=== PATIENT | male | born 1940 ===

== ENCOUNTER 2024-01-26 11:15 | Inpatient (IN) | payer OTHER ==
[~2024-01-26] VITALS: Ht 180.3 cm; Wt 72.6 kg
[2024-01-26 13:19] VITALS: BP 160/80
[2024-01-26] MEDS ORDERED: COZAAR25 MG PO (13:22)
[2024-01-26] MEDS ORDERED: ISOSORBIDE DINI30 MG PO (13:22)
[2024-01-26] MEDS ORDERED: ROSUVASTATIN CA10 MG PO (13:23)
[2024-01-26] MEDS ORDERED: PLAVIX75 MG PO (13:23)
[2024-01-26] MEDS ORDERED: CLARINEX-D 121 EACH PO (13:23)
[2024-01-26] MEDS ORDERED: D3 DOTS50 MCG PO (13:24)
[2024-01-26] MEDS ORDERED: MULTIPLE VITAM1 EAC2 PO (13:24)
[2024-01-29] MEDS ORDERED: PERCOCET 5-3251 EACH PO (10:58)
[2024-01-29] MEDS ORDERED: ZOFRAN8 MG PO (10:59)
[2024-01-29] MEDS ORDERED: MEDROLPACK PO (10:59)
[2024-01-29] MEDS ORDERED: COLACE100 MG PO (10:59)
[2024-01-29] MEDS ORDERED: 0.9 % SODIUM CHLORIDE 1,000 ML IV SCH (11:00)
[2024-01-29] MEDS ORDERED: ENALAPRILAT DIHYDRATE 1.25 MG/ML VIAL IV PRN (11:00)
[2024-01-29] MEDS ORDERED: PROMETHAZINE HCL 50 MG/ML AMPUL IM PRN (11:00)
[2024-01-29] MEDS ORDERED: METHYLPREDNISOLONE SOD SUCC 125 MG VIAL IV ONE ×2 (12:15)
[2024-01-29] MEDS ORDERED: CEFAZOLIN SODIUM 2,000 MG in 0.9 % SODIUM CHLORIDE 100 ML IV ONE (12:15)
[2024-01-29] MEDS ORDERED: VANCOMYCIN HCL 1,000 MG in 0.9 % SODIUM CHLORIDE 250 ML IV ONE (12:15)
[2024-01-29] MEDS ORDERED: HEMOSTATIC MATRIX WITH THROMBIN KIT TOP ONE (12:15)
[2024-01-29] MEDS ORDERED: METHYLPREDNISOLONE ACETATE 80 MG/ML VIAL IU ONE (12:15)
[2024-01-29] MEDS ORDERED: VANCOMYCIN HCL 1,000 MG VIAL IR ONE (12:15)
[2024-01-29] MEDS ORDERED: DOCUSATE SODIUM 100MG CAP PO SCH (13:00)
[2024-01-29] MEDS ORDERED: MORPHINE SULFATE 4 MG/ML CARTRIDGE IV SCH (13:00)
[2024-01-29] MEDS ORDERED: MORPHINE SULFATE 4 MG/ML VIAL IV ONE ×2 (14:15→14:45)
[2024-01-29 16:15] VITALS: BP 110/78; O2SAT 96
[2024-01-29] MEDS ORDERED: CEFAZOLIN SODIUM 1,000 MG in 0.9 % SODIUM CHLORIDE 50 ML IV SCH (17:00)
[2024-01-29] MEDS ORDERED: FAMOtidine 20 MG TABLET PO SCH (17:00)
[2024-01-29] MEDS ORDERED: METHYLPREDNISOLONE SOD SUCC 125 MG VIAL IV SCH (17:00)
[2024-01-29] MEDS ORDERED: VANCOMYCIN HCL 1,000 MG VIAL IV SCH (21:00)
[2024-01-30] MEDS ORDERED: SODIUM CHLORIDE 0.45 % 1,000 ML IV SCH
[2024-01-30 00:25] VITALS: BP 119/82; O2SAT 100
[2024-01-30 04:00] VITALS: BP 99/62; O2SAT 99
[2024-01-30 05:52] LABS: CALCIUM 8.5 mg/dL (8.5-10.1); CREATININE SERUM 1.01 mg/dL (0.70-1.30); GFR 70.55; POTASSIUM 5.17 mEq/L (3.5-5.1)
[2024-01-30] MEDS ORDERED: OxyCODONE HCL/APAP UD (PERCOCET) PO PRN (06:01)
[2024-01-30 06:17] LABS: HEMOGLOBIN 11.4 g/dL (13-16.00); MEAN CELL VOLUME 88.2 fL (80.0-100.00); MEAN CORPUSCULAR HEMOGLOBIN 29.6 pg (27.00-32.0); MEAN CORPUSCULAR HGB CONC 33.5 g/dl (32.0-36.0); PLATELET COUNT 191 K/uL (150-450); RED BLOOD COUNT 3.85 M/uL (4.00-6.00); RED CELL DISTRIBUTION WIDTH 13.5 % (11.5-14.5)
[2024-01-30 08:53] VITALS: BP 113/76; O2SAT 98
[2024-01-30] MEDS ORDERED: ISOSORBIDE DINITRATE 20 MG TABLET PO SCH (09:00)
[2024-01-30] MEDS ORDERED: TAMSULOSIN HCL 0.4 MG CAP PO SCH (09:00)
[2024-01-30] MEDS ORDERED: LOSARTAN POTASSIUM 25 MG TABLET PO SCH (09:00)
[2024-01-30] MEDS ORDERED: ISOSORBIDE MONONITRATE 30 MG TABLET PO SCH (09:00)
== END 2024-01-30 12:02 | disposition home or self-care (01) | DRG 471 ==
LOC: O/R 01-29 06:44 → SURH 01-29 11:15 → PED 01-29 15:21
PROVIDERS: ADMIT Orthopaedic Surgery Orthopaedic Surgery of the Spine; ATTEND Orthopaedic Surgery Orthopaedic Surgery of the Spine
PROC: 0RT30ZZ Resection of Cervical Vertebral Disc, Open Approach (ICD-10-PCS; 2024-01-29)
PROC: 07DS0ZZ Extraction of Vertebral Bone Marrow, Open Approach (ICD-10-PCS; 2024-01-29)
PROC: 4A1104G Monitoring of Peripheral Nervous Electrical Activity, Intraoperative, Open Approach (ICD-10-PCS; 2024-01-29)
PROC: 0RG20A0 Fusion of 2 or more Cervical Vertebral Joints with Interbody Fusion Device, Anterior Approach, Anterior Column, Open Approach (ICD-10-PCS; principal; 2024-01-29 13:30)
DX: M50.01 Cervical disc disorder with myelopathy, high cervical region (principal); S14.123A Central cord syndrome at C3 level of cervical spinal cord, initial encounter; S14.125A Central cord syndrome at C5 level of cervical spinal cord, initial encounter; M50.021 Cervical disc disorder at C4-C5 level with myelopathy; M48.02 Spinal stenosis, cervical region; I10 Essential (primary) hypertension; E78.00 Pure hypercholesterolemia, unspecified

== ENCOUNTER 2024-06-17 08:23 | Inpatient (IN) | payer OTHER ==
[~2024-06-17] VITALS: Ht 30.5 cm; Wt 72.6 kg
[~2024-06-17 08:23] MED LIST: CLARINEX-D 121 EACH PO; COLACE100 MG PO; COZAAR25 MG PO; D3 DOTS50 MCG PO; ISOSORBIDE DINI30 MG PO; MEDROLPACK PO; MULTIPLE VITAM1 EAC2 PO; PERCOCET 5-3251 EACH PO; PLAVIX75 MG PO; ROSUVASTATIN CA10 MG PO; ZOFRAN8 MG PO
[2024-06-21] MEDS ORDERED: CEFAZOLIN SODIUM 1,000 MG VIAL ONE (06:33)
[2024-06-21] MEDS ORDERED: VANCOMYCIN HCL 1,000 MG VIAL ONE (06:33)
[2024-06-21] MEDS ORDERED: METHYLPREDNISOLONE SOD SUCC 125 MG VIAL ONE (06:34)
[2024-06-21] MEDS ORDERED: METHYLPREDNISOLONE ACETATE 80 MG/ML VIAL ONE (06:37)
[2024-06-21] MEDS ORDERED: AMOX-CLAV 875-1 EACH PO (07:28)
[2024-06-21] MEDS ORDERED: PERCOCET 5-3251 EACH PO (07:28)
[2024-06-21] MEDS ORDERED: MEDROLPACK PO (07:28)
[2024-06-21] MEDS ORDERED: GABAPENTIN100 M2 PO (07:29)
[2024-06-21] MEDS ORDERED: NEURONTIN300 MG PO (07:30)
[2024-06-21] MEDS ORDERED: ENALAPRILAT DIHYDRATE 1.25 MG/ML VIAL IV PRN (07:30)
[2024-06-21] MEDS ORDERED: 0.9 % SODIUM CHLORIDE 1,000 ML IV SCH (07:30)
[2024-06-21] MEDS ORDERED: PROMETHAZINE HCL 50 MG/ML AMPUL IM PRN (07:30)
[2024-06-21] MEDS ORDERED: ISOPROPYL ALCOHOL 30 ML OUNCE TOP ONE (07:55)
[2024-06-21] MEDS ORDERED: TAMSULOSIN HCL 0.4 MG CAP PO SCH (09:00)
[2024-06-21] MEDS ORDERED: MORPHINE SULFATE 4 MG/ML CARTRIDGE IV SCH (09:00)
[2024-06-21] MEDS ORDERED: HEMOSTATIC MATRIX 1 KIT KIT TOP ONE (09:13)
[2024-06-21] MEDS ORDERED: HEMOSTATIC MATRIX WITH THROMBIN KIT TOP ONE (09:19)
[2024-06-21] MEDS ORDERED: THROMBIN,HU/FIBRINOGEN/CALCIUM 10 ML SYRINGE TOP ONE (09:21)
[2024-06-21] MEDS ORDERED: VISTASEAL DUAL APPICATOR 1 EACH APPL TOP ONE (09:21)
[2024-06-21] MEDS ORDERED: MORPHINE SULFATE 4 MG/ML VIAL IV ONE (12:30)
[2024-06-21] MEDS ORDERED: DOCUSATE SODIUM 100MG CAP PO SCH (13:00)
[2024-06-21 13:20] VITALS: BP 115/77; O2SAT 99
[2024-06-21] MEDS ORDERED: METHYLPREDNISOLONE SOD SUCC 125 MG VIAL IV SCH (17:00)
[2024-06-21] MEDS ORDERED: CEFAZOLIN SODIUM 1,000 MG in 0.9 % SODIUM CHLORIDE 50 ML IV SCH (17:00)
[2024-06-21] MEDS ORDERED: FAMOtidine 20 MG TABLET PO SCH (17:00)
[2024-06-21 17:18] VITALS: BP 123/70; O2SAT 98
[2024-06-21] MEDS ORDERED: ACETAMINOPHEN 500 MG GEL..CAP PO SCH (20:00)
[2024-06-21] MEDS ORDERED: GABAPENTIN 800 MG TABLET PO SCH (21:00)
[2024-06-21] MEDS ORDERED: VANCOMYCIN HCL 1,000 MG VIAL IV SCH (21:00)
[2024-06-22] MEDS ORDERED: SODIUM CHLORIDE 0.45 % 1,000 ML IV SCH
[2024-06-22 00:30] VITALS: BP 112/74; O2SAT 97
[2024-06-22] MEDS ORDERED: OxyCODONE HCL 5 MG TABLET (ROXICODONE) PO PRN (06:01)
[2024-06-22] MEDS ORDERED: VANCOMYCIN HCL 1,000 MG VIAL ONE ×2 (06:19→15:26)
[2024-06-22 07:07] LABS: HEMATOCRIT 36.9 % (39.0-48.0); HEMOGLOBIN 12.2 g/dL (13-16.00); MEAN CELL VOLUME 89.3 fL (80.0-100.00); MEAN CORPUSCULAR HEMOGLOBIN 29.6 pg (27.00-32.0); MEAN CORPUSCULAR HGB CONC 33.2 g/dl (32.0-36.0); PLATELET COUNT 175 K/uL (150-450); RED BLOOD COUNT 4.14 M/uL (4.00-6.00); RED CELL DISTRIBUTION WIDTH 13.8 % (11.5-14.5)
[2024-06-22 07:35] LABS: CALCIUM 8.7 mg/dL (8.5-10.1); CREATININE SERUM 1.02 mg/dL (0.70-1.30); GFR 69.75; POTASSIUM 5.3 mEq/L (3.5-5.1)
[2024-06-22 08:00] VITALS: BP 105/74; O2SAT 97
[2024-06-22] MEDS ORDERED: LOSARTAN POTASSIUM 50 MG TABLET PO SCH (09:00)
[2024-06-22] MEDS ORDERED: ISOSORBIDE MONONITRATE 30 MG TABLET PO SCH (09:00)
[2024-06-22 16:00] VITALS: BP 90/58; O2SAT 98
[2024-06-23 00:22] VITALS: BP 101/60; O2SAT 97
[2024-06-23 08:00] VITALS: BP 90/55; O2SAT 96
[2024-06-23 09:00] LABS: HEMATOCRIT 30.8 % (39.0-48.0); MEAN CELL VOLUME 89.2 fL (80.0-100.00); MEAN CORPUSCULAR HGB CONC 32.6 g/dl (32.0-36.0); PLATELET COUNT 153 K/uL (150-450); RED BLOOD COUNT 3.45 M/uL (4.00-6.00); RED CELL DISTRIBUTION WIDTH 13.8 % (11.5-14.5)
[2024-06-23] MEDS ORDERED: ENOXAPARIN SODIUM 40 MG/0.4 ML SYRINGE SUBCUTANEO SCH (09:00)
[2024-06-23 09:05] LABS: HEMOGLOBIN 10.1 g/dL (13-16.00); MEAN CORPUSCULAR HEMOGLOBIN 29.2 pg (27.00-32.0)
[2024-06-23 12:40] VITALS: O2SAT 110
== END 2024-06-23 15:23 | DRG 428 ==
LOC: O/R 06-21 04:15 → SURH 06-21 04:15 → PED 06-21 12:58 → SURH 06-21 13:28
PROVIDERS: Internal Medicine; ADMIT Orthopaedic Surgery Orthopaedic Surgery of the Spine; ATTEND Orthopaedic Surgery Orthopaedic Surgery of the Spine
PROC: 0SG1070 Fusion of 2 or more Lumbar Vertebral Joints with Autologous Tissue Substitute, Anterior Approach, Anterior Column, Open Approach (ICD-10-PCS; 2024-06-21)
PROC: XRGC0R7 Fusion of 2 or more Lumbar Vertebral Joints using Custom-Made Anatomically Designed Interbody Fusion Device, Open Approach, New Technology Group 7 (ICD-10-PCS; 2024-06-21)
PROC: 0ST20ZZ Resection of Lumbar Vertebral Disc, Open Approach (ICD-10-PCS; 2024-06-21)
PROC: 0QB30ZZ Excision of Left Pelvic Bone, Open Approach (ICD-10-PCS; 2024-06-21)
PROC: 07DR0ZZ Extraction of Iliac Bone Marrow, Open Approach (ICD-10-PCS; 2024-06-21)
PROC: 4A1104G Monitoring of Peripheral Nervous Electrical Activity, Intraoperative, Open Approach (ICD-10-PCS; 2024-06-21)
PROC: 0SG10K1 Fusion of 2 or more Lumbar Vertebral Joints with Nonautologous Tissue Substitute, Posterior Approach, Posterior Column, Open Approach (ICD-10-PCS; principal; 2024-06-21 07:00)
DX: M51.360 Other intervertebral disc degeneration, lumbar region with discogenic back pain only (principal); M48.062 Spinal stenosis, lumbar region with neurogenic claudication; M41.56 Other secondary scoliosis, lumbar region; I11.9 Hypertensive heart disease without heart failure